=== PATIENT | female | born 1975 | race Caucasian/White ===

== ENCOUNTER 2017-09-30 12:24 | Emergency (ER) | payer MEDICAID ==
[2017-09-30] MEDS ORDERED: SODIUM CHLORIDE 0.9% 1,000ML IVBOLUS ONE (12:30)
[2017-09-30] MEDS ORDERED: LORazepam 2 MG/ML, 1ML ONE (12:37)
[2017-09-30 13:00] LABS: BASOPHILS # (AUTO) 0.22 x10^3/uL (0-0.1); BASOPHILS % (AUTO) 2 % (0-1); EOSINOPHILS # (AUTO) 0.24 x10^3/uL (0-0.4); EOSINOPHILS % (AUTO) 2 % (1-7); LYMPHOCYTES # (AUTO) 2.54 x10^3/uL (1-3.4); LYMPHOCYTES % (AUTO) 23 % (22-44); MD NO; MEAN CORPUSCULAR HEMOGLOBIN 28.3 pg (27.0-34.8); MEAN CORPUSCULAR HGB CONC 33.1 g/dL (32.4-35.8); MEAN CORPUSCULAR VOLUME 85.6 fL (80-100); MEAN PLATELET VOLUME 9.5 fL (7.4-10.4); MONOCYTES # (AUTO) 0.75 x10^3/uL (0.2-0.8); MONOCYTES % (AUTO) 7 % (2-9); NEUTROPHILS % (AUTO) 66 % (42-75); PLATELET COUNT 233 x10^3/uL (130-400); RED BLOOD COUNT 5.19 x10^6/uL (3.82-5.3); RED CELL DISTRIBUTION WIDTH 14.3 % (9.6-15.2)
[2017-09-30] MEDS ORDERED: PLEASE ENTER HEIGHT AND WEIGHT MC SCH (13:00)
[2017-09-30] MEDS ORDERED: LORazepam 2 MG/ML, 1ML IVPush ONE ×2 (13:00→14:00)
[2017-09-30] MEDS ORDERED: PLEASE ENTER ALLERGIES MC SCH (13:00)
[2017-09-30 13:07] LABS: ALANINE AMINOTRANSFERASE 22 U/L (12-78); ANION GAP 7 mmol/L (5-15); CALCIUM 8.7 mg/dL (8.5-10.1); CHLORIDE 106 mmol/L (98-107); CREATININE 0.74 mg/dL (0.55-1.02)
[2017-09-30 13:12] LABS: ALKALINE PHOSPHATASE 72 U/L (45-117); BILIRUBIN,TOTAL 0.4 mg/dL (0.2-1.0); SALICYLATE LEVEL 2.1 mg/dL (2.8-20.0); TOTAL PROTEIN 7.8 g/dL (6.4-8.2)
[2017-09-30 13:30] LABS: ACETAMINOPHEN < 2 mcg/mL (10-30)
[2017-09-30 15:52] LABS: CULTURE INDICATED? YES; MICROSCOPIC AUTO
[2017-09-30 16:08] LABS: AMPHETAMINE SCREEN, URINE Positive (Negative); BARBITURATE SCREEN, URINE Negative (Negative); BENZODIAZEPINE SCREEN, URINE Negative (Negative); CANNABINOID SCREEN, URINE Positive (Negative); COCAINE SCREEN, URINE Negative (Negative); METHADONE SCREEN, URINE Negative (Negative); OPIATE SCREEN, URINE Negative (Negative)
[2017-09-30] MEDS ORDERED: CEFTRIAXONE PMX 1GM/50ML 50 ML IV ONE (17:30)
[2017-09-30] MEDS ORDERED: CEFTRIAXONE PMX 1GM/50ML 50 ML ONE (19:07)
[2017-09-30 20:10] VITALS: BP 112/71
== END 2017-09-30 22:43 | disposition home or self-care (01) ==
LOC: ED 22:36
DX: F29 Unspecified psychosis not due to a substance or known physiological condition (principal); N30.90 Cystitis, unspecified without hematuria
CPT/HCPCS: 36415; 71045; 80053; 80307; 80329; 81001; 84443; 84703; 85025; 87077; 87086; 87186; 93005; 96361; 96365; 96375; 96376; 99285; J0696; J2060; J7030; G0480

== ENCOUNTER 2017-11-22 13:39 | Emergency (ER) | payer MEDICAID ==
[~2017-11-22] VITALS: Ht 175.3 cm; Wt 62.9 kg
[2017-11-22 13:43] VITALS: BP 142/95
[2017-11-22] MEDS ORDERED: ASPIRIN 81 MG TABLET CHEW PO ONE (14:00)
[2017-11-22 14:22] LABS: BASOPHILS # (AUTO) 0.09 x10^3/uL (0-0.1); BASOPHILS % (AUTO) 1 % (0-1); EOSINOPHILS % (AUTO) 1 % (1-7); LYMPHOCYTES # (AUTO) 1.85 x10^3/uL (1-3.4); LYMPHOCYTES % (AUTO) 13 % (22-44); MD NO; MEAN CORPUSCULAR HEMOGLOBIN 28.6 pg (27.0-34.8); MEAN CORPUSCULAR HGB CONC 33.4 g/dL (32.4-35.8); MEAN CORPUSCULAR VOLUME 85.8 fL (80-100); MEAN PLATELET VOLUME 9.3 fL (7.4-10.4); MONOCYTES % (AUTO) 6 % (2-9); NEUTROPHILS # (AUTO) 11.48 x10^3/uL (1.8-6.8); NEUTROPHILS % (AUTO) 79 % (42-75); PLATELET COUNT 254 x10^3/uL (130-400); RED BLOOD COUNT 4.88 x10^6/uL (3.82-5.3); RED CELL DISTRIBUTION WIDTH 14.4 % (9.6-15.2)
[2017-11-22 14:28] LABS: ALANINE AMINOTRANSFERASE 29 U/L (12-78); ALBUMIN 3.8 g/dL (3.4-5.0); ANION GAP 6 mmol/L (5-15); CALCIUM 9.1 mg/dL (8.5-10.1); CHLORIDE 103 mmol/L (98-107); CREATININE 0.68 mg/dL (0.55-1.02)
[2017-11-22 14:32] LABS: ALKALINE PHOSPHATASE 85 U/L (45-117); BILIRUBIN,TOTAL 0.4 mg/dL (0.2-1.0); TOTAL PROTEIN 7.9 g/dL (6.4-8.2); TROPONIN I < 0.015 ng/mL (0.000-0.045)
[2017-11-22] MEDS ORDERED: ASPIRIN 81 MG TABLET CHEW ONE (14:39)
[2017-11-22] MEDS ORDERED: AZITHROMYCIN 500 MG TABLET ONE (15:22)
[2017-11-22] MEDS ORDERED: AZITHROMYCIN 500 MG TABLET PO ONE (15:30)
== END 2017-11-22 15:36 | disposition home or self-care (01) ==
LOC: ED 15:20
DX: J01.00 Acute maxillary sinusitis, unspecified (principal)
CPT/HCPCS: 36415; 71046; 80053; 84484; 85025; 93005; 99285; J7512

== ENCOUNTER 2017-12-17 17:17 | Emergency (ER) | payer MEDICAID ==
[~2017-12-17] VITALS: Ht 176.5 cm; Wt 63.1 kg
[2017-12-17] MEDS ORDERED: DEXAMETHASONE 4 MG TABLET PO ONE (17:30)
[2017-12-17] MEDS ORDERED: DEXAMETHASONE 4 MG TABLET ONE (17:43)
[2017-12-17] MEDS ORDERED: METHOCARBAMOL 750 MG TABLET ONE (17:44)
[2017-12-17] MEDS ORDERED: KETOROLAC 30 MG/1 ML ONE (17:44)
[2017-12-17 18:34] VITALS: BP 125/71
== END 2017-12-17 18:36 | disposition home or self-care (01) ==
LOC: ED 18:34
DX: J02.0 Streptococcal pharyngitis (principal)
CPT/HCPCS: 99283

== ENCOUNTER 2018-03-18 21:25 | Emergency (ER) | payer MEDICAID ==
[~2018-03-18] VITALS: Ht 175.3 cm; Wt 64.0 kg
[2018-03-18 21:29] VITALS: BP 132/89
[2018-03-18] MEDS ORDERED: IBUPROFEN 200 MG TABLET ONE (21:43)
[2018-03-18] MEDS ORDERED: IBUPROFEN 200 MG TABLET PO ONE (22:00)
== END 2018-03-18 22:00 | disposition home or self-care (01) ==
LOC: ED 21:54
DX: J03.00 Acute streptococcal tonsillitis, unspecified (principal); F17.200 Nicotine dependence, unspecified, uncomplicated; Z88.0 Allergy status to penicillin
CPT/HCPCS: 99283

== ENCOUNTER 2018-10-10 12:57 | Emergency (ER) | payer MEDICAID ==
[~2018-10-10] VITALS: Ht 175.3 cm; Wt 67.3 kg
[2018-10-10 13:14] VITALS: BP 126/86
[2018-10-10 14:01] LABS: RAPID INFLUENZA A Negative (Negative); RAPID INFLUENZA B Negative (Negative)
== END 2018-10-10 14:36 | disposition home or self-care (01) ==
LOC: ED 14:13
DX: J06.9 Acute upper respiratory infection, unspecified (principal); F17.200 Nicotine dependence, unspecified, uncomplicated; F29 Unspecified psychosis not due to a substance or known physiological condition
CPT/HCPCS: 71046; 87400; 93005; 99284

== ENCOUNTER 2020-04-12 00:50 | Emergency (ER) | payer MEDICAID ==
[~2020-04-12] VITALS: Ht 175.3 cm; Wt 64.1 kg
[2020-04-12 01:16] VITALS: BP 106/70
--- NOTE | 2020-04-12 01:42 | NUR ---
Ice pack provided.
== END 2020-04-12 03:10 | disposition home or self-care (01) ==
LOC: ED 02:38
DX: M25.511 Pain in right shoulder (principal); F11.10 Opioid abuse, uncomplicated; F12.10 Cannabis abuse, uncomplicated; F17.210 Nicotine dependence, cigarettes, uncomplicated; Z72.9 Problem related to lifestyle, unspecified
CPT/HCPCS: 99283